=== PATIENT | male | born 1975 | race Caucasian/White ===

== ENCOUNTER 2016-09-11 18:41 | Emergency (ER) | payer OTHER ==
[~2016-09-11] VITALS: Ht 170.2 cm; Wt 90.0 kg
[~2016-09-11 18:41] MED LIST: MAG-19 PO; OMEP10CA4 PO
[2016-09-11 18:49] VITALS: Ht 170.2 cm; Wt 90.0 kg
[2016-09-11] MEDS ORDERED: KETOROLAC 30 MG INJ IV STA (20:18)
[2016-09-11 20:57] LABS: ADD SCAN DIFF NO
[2016-09-11 20:58] LABS: BASOPHIL # 0.1 10^3/ul (0.0-0.1); BASOPHILS % 0.4 % (0.0-2.0); EOSINOPHILS # 0.3 10^3/ul (0.0-0.5); EOSINOPHILS % 2.2 % (0.0-7.0); HEMATOCRIT 46.1 % (42.0-52.0); HEMOGLOBIN 15.8 g/dl (14.0-18.0); LYMPHOCYTES # 4.1 10^3/ul (0.8-2.9); LYMPHOCYTES % 35.3 % (15.0-51.0); MEAN CORPUSCULAR HEMOGLOBIN 29.5 pg (29.0-33.0); MEAN CORPUSCULAR HGB CONC 34.3 g/dl (32.0-37.0); MEAN CORPUSCULAR VOLUME 86.2 fl (82.0-101.0); MEAN PLATELET VOLUME 11.9 fl (7.4-10.4); MONOCYTE # 0.7 10^3/ul (0.3-0.9); MONOCYTES % 5.8 % (0.0-11.0); NEUTROPHIL # 6.5 10^3/ul (1.6-7.5); PLATELET COUNT 222 10^3/UL (140-415); RED BLOOD COUNT 5.35 10^6/ul (4.70-6.10); RED CELL DISTRIBUTION WIDTH 12.9 % (11.5-14.5); WHITE BLOOD COUNT 11.6 10^3/ul (4.8-10.8)
[2016-09-11 21:02] LABS: ADD UMIC NO; URINE BILIRUBIN (Dip) NEGATIVE (NEGATIVE); URINE BLOOD (Dip) NEGATIVE (NEGATIVE); URINE COLOR LT. YELLOW (YELLOW); URINE GLUCOSE (Dip) NEGATIVE (NEGATIVE); URINE KETONES (Dip) NEGATIVE (NEGATIVE); URINE LEUKOCYTE ESTERASE (Dip) NEGATIVE (NEGATIVE); URINE NITRITE (Dip) NEGATIVE (NEGATIVE); URINE TOTAL PROTEIN (Dip) NEGATIVE (NEGATIVE); URINE UROBILINOGEN (Dip) 0.2 E.U./dL (0.1-1.0)
[2016-09-11 21:19] LABS: ALBUMIN 5.2 g/dl (3.3-4.9); ALBUMIN/GLOBULIN RATIO 1.79; BILIRUBIN,INDIRECT 0.2 mg/dl (0-1.1); BILIRUBIN,TOTAL 0.2 mg/dl (0.2-1.3); CALCIUM 9.9 mg/dl (8.4-10.2); CREATININE 1.24 mg/dl (0.61-1.24); POTASSIUM 3.8 mmol/L (3.5-5.1); TOTAL PROTEIN 8.1 g/dl (6.1-8.1)
--- NOTE | 2016-09-11 21:56 | RADRPT ---
PROCEDURE: CT Abdomen and Pelvis without contrast CLINICAL INDICATION: Right lower quadrant abdominal pain and constipation, history of appendectomy and 2014 TECHNIQUE: Transaxial images were obtained through the abdomen and pelvis on a multi-slice scanner without the intravenous contrast administration. No oral contrast had previously been given. Sagit lennie and coronal re-formations were subsequently reconstructed. One or more of the following dose reduction techniques were used: - Automated exposure control. - Adjustment of the mA and/or kV according to patient size. - Use of iterative reconstruction technique. Radiation dose: CTDIvol = 13.20 mGy; DLP = 740.03 mGy-cm. COMPARISON: No prior studies are available for comparison. FINDINGS: Lung bases: The visualized lung bases appear unremarkable. Liver: The liver is enlarged and appears fatty infiltrated. There is a 1.3 cm nodular area of incre ased attenuation at the posterior dome of the right lobe of the liver with a central calcification w hich measures approximately 3 mm. Gallbladder: The wall is not thickened. No radiopaque stones are identified. Bile ducts: The intra and extrahepatic bile ducts are normal in caliber. Pancreas: Appears normal with no mass or inflammation evident. Spleen: Normal in size with no focal lesion. Adrenals: Normal with no mass identified. Kidneys, ureters and bladder: The kidneys are normal in size and there is no mass, pathological calc ification, or hydronephrosis evident. There is no perinephric stranding. The ureters are normal in c aliber and no ureteroliths are identified. The bladder appears unremarkable. Reproductive organs: Unremarkable. Stomach and bowel: The stomach is moderately distended with food debris. There is no evidence of daksha wel obstruction or inflammation. Appendix: The vermiform appendix is not identified. Peritoneum: No free intraperitoneal fluid or air is identified. There is a small fat containing umbi lical hernia. Aorta: Normal in caliber with no aneurysmal dilatation. IVC: Unremarkable. The left renal vein courses posterior to the abdominal aorta. Lymph nodes: No pathologically enlarged nodes are identified. Osseous structures: A nonaggressive well-circumscribed cystic lesion with a septation is seen within the right ilium. The osseous elements otherwise appear intact. There is a mild disk bulge at L5-S 1. IMPRESSION: 1. Hepatomegaly with diffuse fatty infiltration. A 1.5 cm nodular area of increased attenuation is seen at the posterior dome of the right lobe with a central 3-4 mm calcification. This could be in flammatory or neoplastic. This presumably could be followed with serial sonography. An abdominal s onogram in 2-3 months is recommended for continued evaluation. 2. The stomach is moderately distended with food debris. There is no evidence of bowel obstruction or inflammation. The vermiform appendix is absent. 3. No evidence of urinary outflow obstruction or ureterolithiasis. 4. There is no free intraperitoneal fluid or air. 5. There is a small fat containing umbilical hernia. 6. 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 7. Mild disk bulge at L4-L5. Findings of 1.5 cm hepatic nodule with a central calcification, inflammatory versus neoplastic were telephoned by Cricket Greenberg MD to JOSHUA Sun on 09/11/2016 at 2147 hours. Physician Lashonda Date Time Electronically viewed and signed by Physician Lashonda on 09/11/2016 21:56 /
[2016-09-11] MEDS ORDERED: DICY10CA60 PO (22:40)
[2016-09-11] MEDS ORDERED: SIME125T7 PO (22:40)
--- NOTE | 2016-09-11 22:48 | ERD ---
ER Documentation Chief Complaint Date/Time DATE: 09/11/16 TIME: 22:44 Chief Complaint RLQ pain for a week and constipation Appendectomy 2014 HPI This is a 40-year-old male presents to the ER with right lower quadrant abdominal pain that is been going on for the past few weeks. Over the last few days pain is worse. Patient describes pain as a bloating sensation. He denies any fevers or chills. Denies any nausea vomiting or diarrhea. He denies any urinary frequency, dysuria or hematuria. Patient denies any chest pain shortness of breath. Patient had an appendectomy 3 years ago. ROS 12 point review of systems was done, all negative except per HPI. Medications Home Meds Active Scripts Simethicone (Gas-X) 125 Mg Tab.chew, 125 MG PO Q12 for 3 Days, TAB.CHEW Prov:ELSIE CISNEROS 09/11/16 Dicyclomine Hcl* (Bentyl*) 10 Mg Capsule, 10 MG PO QID for 7 Days, CAP Prov:ELSIE CISNEROS C 09/11/16 Omeprazole* (Omeprazole*) 10 Mg Capsule.dr, 10 MG PO DAILY, #30 CAP Prov:MILLI COOK NP 12/21/14 Magaldrate/Simethicone* (Mylanta*) 355 Ml Susp, 30 ML PO QID Y for GASTROINTESTINAL UPSET, #1 BOTTLE Prov:MILLI COOK NP 12/21/14 Allergies Allergies: Coded Allergies: No Known Allergy (Unverified , 09/11/16) PMhx/Soc History of Surgery: Yes (appendectomy) Anesthesia Reaction: No Hx Neurological Disorder: No Hx Respiratory Disorders: No Hx Cardiac Disorders: No Hx Psychiatric Problems: No Hx Miscellaneous Medical Probl: Yes (HLD) Hx Alcohol Use: Yes Hx Substance Use: No Hx Tobacco Use: Yes Smoking Status: Current every day smoker Physical Exam Vitals Vital Signs Date Time Temp Pulse Resp B/P Pulse Ox O2 Delivery O2 Flow Rate FiO2 09/11/16 18:49 97.5 77 18 133/87 97 Physical Exam GENERAL: The patient is well developed and appropriate for usual state of health , in no apparent distress. HEENT: Atraumatic CHEST: Clear to auscultation bilaterally. There are no rales, wheezes or rhonchi. HEART: Regular rate and rhythm. No murmurs, clicks, rubs or gallops. ABDOMEN: Soft, nontender and nondistended. Good bowel sounds. No rebound or guarding. No gross peritonitis. No gross organomegaly or masses. No Pineda sign or McBurney point tenderness. BACK: No midline or flank tenderness. NEURO: Alert and oriented. Result Diagram: 09/11/16203709/11/162037 Results 24 hrs Laboratory Tests Test 09/11/16 20:38 White Blood Count 11.610^3/ul Red Blood Count 5.3510^6/ul Hemoglobin 15.8g/dl Hematocrit 46.1% Mean Corpuscular Volume 86.2fl Mean Corpuscular Hemoglobin 29.5pg Mean Corpuscular Hemoglobin Concent 34.3g/dl Red Cell Distribution Width 12.9% Platelet Count 22451^3/UL Mean Platelet Volume 11.9fl Neutrophils % 56.0% Lymphocytes % 35.3% Monocytes % 5.8% Eosinophils % 2.2% Basophils % 0.4% Nucleated Red Blood Cells % 0.0/100WBC Neutrophils # 6.510^3/ul Lymphocytes # 4.110^3/ul Monocytes # 0.710^3/ul Eosinophils # 0.310^3/ul Basophils # 0.110^3/ul Nucleated Red Blood Cells # 0.010^3/ul Urine Color LT. YELLOW Urine Clarity CLEAR Urine pH 5.5 Urine Specific Delano 1.025 Urine Ketones NEGATIVE Urine Nitrite NEGATIVE Urine Bilirubin NEGATIVE Urine Urobilinogen 0.2 E.U./dL Urine Leukocyte Esterase NEGATIVE Urine Hemoglobin NEGATIVE Urine Glucose NEGATIVE% Urine Total Protein NEGATIVE Sodium Level 143mmol/L Potassium Level 3.8mmol/L Chloride Level 103mmol/L Carbon Dioxide Level 29mmol/L Anion Gap 15 Blood Urea Nitrogen 14mg/dl Creatinine 1.24mg/dl Glucose Level 96mg/dl Calcium Level 9.9mg/dl Total Bilirubin 0.2mg/dl Direct Bilirubin 0.00mg/dl Indirect Bilirubin 0.2mg/dl Aspartate Amino Transf (AST/SGOT) 28IU/L Alanine Aminotransferase (ALT/SGPT) 72IU/L Alkaline Phosphatase 67IU/L Total Protein 8.1g/dl Albumin 5.2g/dl Globulin 2.90g/dl Albumin/Globulin Ratio 1.79 Lipase 124U/L Current Medications Medications (Trade) Dose Ordered Sig/Valdemar Route PRN Reason Start Time Stop Time Status Last Admin Dose Admin Ketorolac Tromethamine (Toradol) 30 mg ONCE STAT IV 09/11/16 20:18 09/11/16 20:19 DC 09/11/16 20:44 Procedures/MDM Differential diagnosis includes but is not limited to appendicitis, hernia, testicular torsion, UTI, constipation, diverticulitis, epididymitis. This is a 40-year-old male presents to the ER with ongoing right lower quadrant pain. Suspicion for acute abdominal etiology is low. Patient's blood work is normal with no significant increase in leukocytes and no electrolyte abnormalities. Patient was found to have a nodular lesion in his liver, this was thoroughly discussed with patient advised patient to get follow-up sonogram in 2-3 months and to possibly get a biopsy of the nodule. Patient will be sent home with Bentyl and with simethicone. She is afebrile and extremely well-appearing. He has a benign abdominal examination. He needs to follow-up with his primary care doctor within 1-2 days return to ER sooner if symptoms worsen. My medical decision making was shared with the patient he understands and agrees with plan. Departure Diagnosis: Primary Impression: Abdominal pain Condition: Stable Patient Instructions: Abdominal Pain Referrals: ROSS DENIS MD (PCP) Additional Instructions: Call your primary care doctor TOMORROW for an appointment during the next 1-2 days.See the doctor sooner or return here if your condition worsens before your appointment time. ELSIE CISNEROS Sep 11, 2016 22:48
[2016-09-11 22:52] VITALS: BP 163/95; PULSE 85; RESP 18; TEMP 97.5
== END 2016-09-11 22:52 | disposition home or self-care (01) ==
LOC: FTE 18:41
DX: R10.31 Right lower quadrant pain (principal); F17.210 Nicotine dependence, cigarettes, uncomplicated
CPT/HCPCS: 74176; 80053; 81003; 83690; 85025; J1885; 36415; 96374

== ENCOUNTER 2017-02-08 20:28 | Emergency (ER) | payer OTHER ==
[~2017-02-08] VITALS: Ht 170.2 cm; Wt 83.5 kg
[~2017-02-08 20:28] MED LIST changes: +DICY10CA60 PO; +SIME125T7 PO
[2017-02-08 20:29] VITALS: Ht 170.2 cm; Wt 83.5 kg
[2017-02-08 21:00] VITALS: BP 135/81; PULSE 89; RESP 18; TEMP 97
--- NOTE | 2017-02-08 21:19 | RADRPT ---
PROCEDURE: XR Chest. CLINICAL INDICATION: chest pain TECHNIQUE: Single frontal view of the chest was obtained COMPARISON: 02/27/14 FINDINGS: The heart and mediastinum are within normal limits. There are mild left lower lobe linear atelectatic changes. The lungs are otherwise clear. There is no pleural effusion or pneumothorax. RPTAT: AA IMPRESSION: Mild left lower lobe linear atelectatic changes. .Domingo Ragsdale MD, MD Date Time Electronically viewed and signed by .Domingo Ragsdale MD, MD on 02/08/2017 21:19 .S/
[2017-02-08] MEDS ORDERED: ASPIRIN 81 MG TAB PO ONE (21:30)
[2017-02-08] MEDS ORDERED: morphine 4 MG/ML VIAL IV STA (22:17)
--- NOTE | 2017-02-09 00:01 | RADRPT ---
PROCEDURE: CT ABDOMEN/PELVIS WITHOUT CONTRAST CLINICAL INDICATION: 41-year-old male with abdominal pain. The patient has a history of prior appe ndectomy in 2013. TECHNIQUE: The study was performed utilizing a GE [employer] VCT 64-slice CT scanner. Direct axia l sections were obtained through the abdomen and pelvis without the use of intravenous contrast mate rial. Sagittal and coronal reformations were obtained. One or more of the following dose reduction t echniques were utilized: automated exposure control, adjustment of the mA and/or kV according to pat ient's size and/or the use of iterative reconstruction technique. The images were reviewed on a PAC S workstation. CTD/vol = 10.6 mGy; Total Exam DLP = 672 point a mGy-cm. COMPARISON: CT abdomen/pelvis September 11, 2016. FINDINGS: There is minimal bibasilar subsegmental atelectasis. There is no evidence for significant pleural e ffusion. The liver has a normal size and contour. There is a ovoid nodule with central calcificatio n within the right lobe of the liver on axial image 3-26 measuring 7 x 9 x 8 mm. This appears to hav e decreased in volume compared to the patient's prior study. No intrahepatic nor extrahepatic biliar y ductal dilatation is seen. The gallbladder demonstrates no wall thickening nor pericholecystic flu id. No biliary stones are evident. The pancreas is without areas of abnormal attenuation. The splee n is identified and has a normal size without abnormal density. The adrenal glands are unremarkable. The kidneys are without abnormal density. No hydroureteronephrosis nor nephroureterolithiasis is ev ident. The urinary bladder contains urine. There is a small umbilical hernia with an opening of 8 x 7 mm containing fat. There is mild retained stool within the colon without obstruction. The appendix is not visualized consistent with prior appendectomy. Shotty mesenteric lymph nodes are pre sent. The prostate is not enlarged. There is no significant free fluid. There is a minimal left ingu inal hernia containing fat. The aortoiliac vessels are without aneurysmal dilatation. Mild diffuse d isc bulges are again noted at L4-5 and L5-S1. IMPRESSION: 1. Right hepatic small ovoid nodular density with central calcification which has decreased in volu me compared to the patient's prior study from September 11, 2016. 2. Mild retained stool within the colon without obstruction. 3. Status post appendectomy. 4. Shotty mesenteric lymph nodes. 5. Minimal left inguinal hernia containing fat. .Breezy Wynne MD, Date Time Electronically viewed and signed by .Breezy Wynne MD, MD on 02/09/2017 00:00 .M/
[2017-02-09] MEDS ORDERED: RANI150T9 PO (00:12)
[2017-02-09] MEDS ORDERED: FAMO10TA31 PO (00:12)
[2017-02-09] MEDS ORDERED: [UNRECOGNIZED DRUG - CODE] PO (00:12)
[2017-02-09] MEDS ORDERED: ASPI81TA3 PO (00:12)
[2017-02-09] MEDS ORDERED: POLY17PO6 PO (00:28)
[2017-02-09] MEDS ORDERED: NAPR-688 PO (00:28)
--- NOTE | 2017-02-09 00:34 | ERD ---
ER Documentation Chief Complaint Chief Complaint c/o left sided CP x 3 hrs. Non-provoked. Sharp. Radiates to L arm. HPI 41-year-old male that complains of left upper abdominal pain and feeling a pulsatile mass. Also complains of sharp chest pain is been going on for 3-1/2 hours now. Says it radiates to his left arm. Says he is more concerned about the abdominal pain which is worse than his chest pain. States that in the past he had a liver cyst and a fatty liver. Denies diarrhea, fever and chills. Denies nausea and vomiting. ROS All systems reviewed and are negative except as per history of present illness. Medications Home Meds Active Scripts Naproxen* (Naproxen*) 500 Mg Tablet, 500 MG PO BID Y for PAIN, #20 TAB Prov:ERIKABANDAR 02/09/17 Polyethylene Glycol* (Miralax*) 17 Gm Powd.pack, 17 GM PO DAILY, #7 Prov:ERIKABANDAR 02/09/17 Simethicone (Gas-X) 125 Mg Tab.chew, 125 MG PO Q12 for 3 Days, TAB.CHEW Prov:ELSIE CISNEROS 09/11/16 Reported Medications Aspirin* (Aspirin* Chew) 81 Mg Tab.chew, 81 MG PO DAILY, TAB.CHEW 02/09/17 Psyllium Seed (Fiber Smooth) 283 Gm Powder, 283 GM PO 02/09/17 Ranitidine Hcl* (Zantac*) 150 Mg Tablet, 150 MG PO HS, #30 TAB 02/09/17 Famotidine* (Pepcid* AC) 10 Mg Tablet, 10 MG PO DAILY, #30 TAB 02/09/17 Discontinued Scripts Dicyclomine Hcl* (Bentyl*) 10 Mg Capsule, 10 MG PO QID for 7 Days, CAP Prov:ELSIE CISNEROS 09/11/16 Omeprazole* (Omeprazole*) 10 Mg Capsule.dr, 10 MG PO DAILY, #30 CAP Prov:MILLI COOK NP 12/21/14 Magaldrate/Simethicone* (Mylanta*) 355 Ml Susp, 30 ML PO QID Y for GASTROINTESTINAL UPSET, #1 BOTTLE Prov:MILLI COOK NP 12/21/14 Allergies Allergies: Coded Allergies: No Known Allergy (Unverified , 02/09/17) PMhx/Soc History of Surgery: Yes (appendectomy) Anesthesia Reaction: No Hx Neurological Disorder: No Hx Respiratory Disorders: No Hx Cardiac Disorders: No Hx Psychiatric Problems: No Hx Miscellaneous Medical Probl: Yes (HLD) Hx Alcohol Use: Yes Hx Substance Use: No Hx Tobacco Use: Yes Smoking Status: Current every day smoker Physical Exam Vitals Vital Signs Date Time Temp Pulse Resp B/P Pulse Ox O2 Delivery O2 Flow Rate FiO2 02/08/17 21:00 97.0 89 18 135/81 98 Room Air 02/08/17 20:29 97.0 80 18 148/78 98 Physical Exam Const: [] Mild distress Head: Atraumatic Eyes: Normal Conjunctiva ENT: Normal External Ears, Nose and Mouth. Neck: Full range of motion..~ No meningismus. Resp: Clear to auscultation bilaterally Cardio: Regular rate and rhythm, no murmurs Abd: Soft, mild mid abdominal pain without guarding or rebound, non distended. Normal bowel sounds Skin: No petechiae or rashes Ext: No cyanosis, or edema Neur: Awake and alert and oriented 3, no focal deficits Psych: Normal Mood and Affect Result Diagram: 02/08/17210602/08/172106 Results 24 hrs Laboratory Tests Test 02/08/17 21:07 White Blood Count 13.410^3/ul Red Blood Count 5.2610^6/ul Hemoglobin 15.5g/dl Hematocrit 45.0% Mean Corpuscular Volume 85.6fl Mean Corpuscular Hemoglobin 29.5pg Mean Corpuscular Hemoglobin Concent 34.4g/dl Red Cell Distribution Width 12.8% Platelet Count 54831^3/UL Mean Platelet Volume 11.4fl Neutrophils % 66.3% Lymphocytes % 25.8% Monocytes % 5.7% Eosinophils % 1.5% Basophils % 0.4% Nucleated Red Blood Cells % 0.0/100WBC Neutrophils # 8.910^3/ul Lymphocytes # 3.510^3/ul Monocytes # 0.810^3/ul Eosinophils # 0.210^3/ul Basophils # 0.110^3/ul Nucleated Red Blood Cells # 0.010^3/ul Sodium Level 143mmol/L Potassium Level 4.2mmol/L Chloride Level 104mmol/L Carbon Dioxide Level 27mmol/L Anion Gap 16 Blood Urea Nitrogen 15mg/dl Creatinine 1.15mg/dl Glucose Level 92mg/dl Calcium Level 9.1mg/dl Total Bilirubin 0.2mg/dl Direct Bilirubin 0.00mg/dl Indirect Bilirubin 0.2mg/dl Aspartate Amino Transf (AST/SGOT) 23IU/L Alanine Aminotransferase (ALT/SGPT) 42IU/L Alkaline Phosphatase 65IU/L Troponin I < 0.012ng/ml Total Protein 7.6g/dl Albumin 4.7g/dl Lipase 113U/L Current Medications Medications (Trade) Dose Ordered Sig/Valdemar Route PRN Reason Start Time Stop Time Status Last Admin Dose Admin Aspirin (Aspirin) 324 mg ONCE ONCE PO 02/08/17 21:30 02/08/17 21:31 DC 02/08/17 21:11 Morphine Sulfate (morphine) 4 mg ONCE STAT IV 02/08/17 22:17 02/08/17 22:18 DC 02/08/17 22:39 Procedures/MDM Chest pain with no signs of acute coronary syndrome inpatient at low risk for such. Was given an aspirin. Was also given morphine for his abdominal pain and a liter of fluid. This resolved the pain. Cytosis without signs of acute infection. Does have positive constipation on his CAT scan with stool in all parts of colon. Stable vital signs throughout. Negative troponin. We will discharge him with MiraLAX as well as naproxen and primary care follow-up with instructions to obtain outpatient echocardiogram. Strict return precautions to the ER. EKG interpretation: Normal sinus rhythm with no ST elevations or depressions concerning for acute ischemia, axis deviation, normal intervals. Monitor interpretation: Normal sinus rhythm without arrhythmia Chest x-ray interpretation: I see no acute process, I see no pneumonia, no pulmonary edema, no pneumothorax, no fractures. The abdomen pelvis interpretation: Constipation without any signs of acute obstruction of the bowel, no abnormal fat stranding, no perforation or free air , no fractures. Improvement of liver lesion peer Departure Diagnosis: Primary Impression: Abdominal pain Additional Impressions: Chest pain Constipation Condition: Stable Patient Instructions: Abdominal Pain, Constipation (Adult), Chest Pain, Uncertain Cause Additional Instructions: Call your primary care doctor TOMORROW for an appointment during the next 1-2 days.See the doctor sooner or return here if your condition worsens before your appointment time. BANDAR JAMES DO Feb 09, 2017 00:34
== END 2017-02-09 00:28 | disposition home or self-care (01) ==
LOC: E/R 20:28
DX: K59.00 Constipation, unspecified (principal); R07.9 Chest pain, unspecified; F17.210 Nicotine dependence, cigarettes, uncomplicated
CPT/HCPCS: 36415; 71010; 74176; 80048; 80076; 83690; 84484; 85025; 93005; 96374; 99285; J2270

== ENCOUNTER 2017-05-13 14:51 | Emergency (ER) | END 2017-05-13 19:26 | disposition home or self-care (01) ==

== ENCOUNTER 2017-11-29 15:35 | Emergency (ER) | END 2017-11-29 20:47 | disposition home or self-care (01) ==

== ENCOUNTER 2018-03-11 11:48 | Emergency (ER) | END 2018-03-11 15:38 | disposition home or self-care (01) ==